=== PATIENT | female | born 1940 | race Caucasian/White ===

== ENCOUNTER → 2016-10-04 | Outpatient (CLI) | payer MEDICARE ==
[2016-10-04 20:26] LABS: Blood Urea Nitrogen 16 mg/dL (7-17); Non-African American GFR(MDRD) >60 (>60 ml/min/1.73 sqM)
--- NOTE | 2016-10-04 23:29 | MR ---
EXAMINATION TYPE: MR brain wo/w con DATE OF EXAM: 10/04/2016 COMPARISON: NONE HISTORY: Headaches TECHNIQUE: Multiplanar, multisequence images of the brain and brainstem is performed without and with IV contras t, utilizing 15 mL intravenous MultiHance . FINDINGS: There are a few scattered foci of increased signal in the white matter of both cerebral hem ispheres. The largest measures 5 mm. The total number is 6. There is no evidence of Cortical infarct . Brainstem appears fairly normal. Sella turcica is normal. Corpus callosum is intact. I see no patho logic enhancement. There is minimal subependymal increased signal around the lateral ventricles. IMPRESSION: There are scattered white matter signal changes most likely related to minimal chronic sm all vessel ischemia. No evidence of cortical infarct. No atrophy.
== END | disposition home or self-care (01) ==
LOC: RADMRIMAIN 19:14
PROVIDERS: ATTEND Otolaryngology
DX: R90.89 Other abnormal findings on diagnostic imaging of central nervous system (principal); R51 Headache
CPT/HCPCS: 82565; 84520; 70553; A9577

== ENCOUNTER 2016-11-07 20:44 | Emergency (ER) | payer MEDICARE ==
[2016-11-07 20:56] VITALS: TEMP 97.7
[2016-11-07 21:29] LABS: Basophils % (A) 1 %; CH 31.8; CHCM 34.6; Eosinophils # (A) 0.3 k/uL (0-0.7); Eosinophils % (A) 4 %; HCT 38.8 % (34.0-46.0); HDW 2.69; HGB 13.2 gm/dL (11.4-16.0); Luc # (Auto) 0.12; Luc % (Auto) 2; Lymphocytes # (A) 1.4 k/uL (1.0-4.8); Lymphocytes % (A) 21 %; MCH 31.4 pg (25.0-35.0); MCHC 34.1 g/dL (31.0-37.0); MCV 92.2 fL (80.0-100.0); Mean Platelet Volume 8.3; Monocytes # (A) 0.5 k/uL (0-1.0); Monocytes % (A) 7 %; Neutrophils # (A) 4.5 k/uL (1.3-7.7); Neutrophils % (A) 66 %; RDW 13.2 % (11.5-15.5); WBC 6.8 k/uL (3.8-10.6); WBC (Perox) 7.11
[2016-11-07 21:33] LABS: Appearance,Urine Clear (Clear); Bilirubin,Urine Negative (Negative); Glucose,Urine (UA) Negative (Negative); Ketones,Urine Negative (Negative); Leukocyte Esterase,Urine Negative (Negative); Mucus,Urine Rare /hpf; Nitrite,Urine Negative (Negative); Particle Count 3191; Protein,Urine Negative (Negative); RBC,Urine >182 /hpf (0-5); Specific Gravity,Urine 1.007 (1.001-1.035); Squamous Epithelial Cell,Urine <1 /hpf (0-4); UA Billing (MACRO vs. MICRO) MICRO; Urobilinogen,Urine <2.0 mg/dL (<2.0)
[2016-11-07 21:37] LABS: ALT 39 U/L (9-52); AST 31 U/L (14-36); Alkaline Phosphatase 105 U/L (38-126); Amylase 68 U/L (30-110); Anion Gap 8 mmol/L; Blood Urea Nitrogen 17 mg/dL (7-17); Calcium 9.7 mg/dL (8.4-10.2); Carbon Dioxide 27 mmol/L (22-30); Chloride 105 mmol/L (98-107); Glucose 94 mg/dL (74-99); Non-African American GFR(MDRD) >60 (>60 ml/min/1.73 sqM); Potassium 3.7 mmol/L (3.5-5.1); Sodium 140 mmol/L (137-145); Total Bilirubin 1.2 mg/dL (0.2-1.3); Total Protein 6.9 g/dL (6.3-8.2)
--- NOTE | 2016-11-07 21:46 | ED ---
Female Urogenital HPI - General Chief complaint: Abdominal Pain Stated complaint: Back Pain/ Abd Pain Time Seen by Provider: 11/07/16 21:03 Source: patient Mode of arrival: ambulatory Limitations: no limitations - History of Present Illness Initial comments: Patient is a 76-year-old woman who presents to be evaluated for hematuria. The patient states that her symptoms began approximately one month ago. She states that she thought she had a urinary tract infection. She was having some mild dysuria and she was having some hematuria. She saw her physician and completed a course of amoxicillin. She states that a few days after the course ended she had a recurrence of the hematuria and she then completed a 7 day course of Macrobid. This ended approximately 2-3 days ago and today in the evening she noticed a recurrence of the hematuria the patient also states that she has been having some abdominal bloating which is been going on for a day or 2. She has had a change in her bowel movements over the past 2 weeks, stating that her bowel movements have become very firm which is unusual for her. She does note that she changed to a vegetarian diet probably just before these bowel changes started. MD Complaint: other (Hematuria) Onset/Timin -: month(s) Severity: mild Quality: cramping, other Consistency: constant Improves with: none, other (Hematuria) Worsens with: none Patient : No - Related Data Home Medications Medication Instructions Recorded Confirmed Atorvastatin [Lipitor] 40 mg PO DAILY 11/07/16 11/07/16 Levothyroxine Sodium [Synthroid] 50 mcg PO DAILY 11/07/16 11/07/16 Previous Rx's Medication Instructions Recorded Hydrocodone/Acetaminophen [Hazard 1 each PO Q6HR PRN #20 tab 11/08/16 5-325] Ondansetron Odt [Zofran ODT] 4 mg PO Q8HR PRN #10 tab 11/08/16 Tamsulosin [Flomax] 0.4 mg PO DAILY #14 cap 11/08/16 Allergies Allergy/AdvReac Type Severity Reaction Status Date / Time aspirin AdvReac Abdominal Verified 11/07/16 20:56 Pain lactose AdvReac Intolerant Verified 11/07/16 21:07 Review of Systems ROS Statement: Those systems with pertinent positive or pertinent negative responses have been documented in the HPI. ROS Other: All systems not noted in ROS Statement are negative. Constitutional: Denies: fever, chills, weakness Respiratory: Denies: cough, dyspnea Cardiovascular: Denies: chest pain, palpitations, edema, syncope Gastrointestinal: Reports: as per HPI, abdominal pain (Bloating), constipation. Denies: nausea, vomiting, diarrhea, melena, hematochezia Genitourinary: Reports: hematuria. Denies: urgency, dysuria, frequency, discharge Musculoskeletal: Denies: back pain Skin: Denies: rash Neurological: Denies: headache, weakness, numbness Past Medical History Past Medical History: Hyperlipidemia, Thyroid Disorder History of Any Multi-Drug Resistant Organisms: None Reported Past Surgical History: No Surgical Hx Reported Past Psychological History: No Psychological Hx Reported Smoking Status: Former smoker Past Alcohol Use History: None Reported Past Drug Use History: None Reported General Exam Limitations: no limitations General appearance: alert, in no apparent distress Head exam: Present: atraumatic, normocephalic Eye exam: Present: normal appearance. Absent: scleral icterus, conjunctival injection ENT exam: Present: normal oropharynx Respiratory exam: Present: normal lung sounds bilaterally. Absent: respiratory distress, wheezes, rales, rhonchi, stridor Cardiovascular Exam: Present: regular rate, normal rhythm, normal heart sounds. Absent: systolic murmur, diastolic murmur, rubs, gallop GI/Abdominal exam: Present: soft, normal bowel sounds. Absent: distended, tenderness, guarding, rebound, rigid, mass, pulsatile mass, hernia Extremities exam: Present: normal inspection, normal capillary refill. Absent: pedal edema, calf tenderness Back exam: Present: normal inspection. Absent: CVA tenderness (R), CVA tenderness (L) Skin exam: Present: warm, dry, intact, normal color. Absent: rash, cyanosis, diaphoretic, erythema, petechiae, pallor, mottled Course Vital Signs 11/07/16 11/07/16 11/08/16 20:50 22:15 00:00 Temperature 97.7 F Pulse Rate 73 68 Respiratory 18 18 Rate Blood Pressure 215/98 183/77 202/93 O2 Sat by Pulse 98 96 Oximetry 11/08/16 01:50 Temperature Pulse Rate 88 Respiratory 16 Rate Blood Pressure 184/83 O2 Sat by Pulse Oximetry Medical Decision Making - Medical Decision Making Patient is a 76-year-old woman with hematuria, found to have kidney stone. Her symptoms have nearly completely resolved with medication. Discussed admission versus discharge she would like to go home and follow-up with the urologist as an outpatient. She seems stable for this. Discussed return parameters. Discussed appropriate further care and follow-up. - Lab Data Result diagrams: 11/07/16 21:00 11/07/16 21:00 Lab Results 11/07/16 11/07/16 11/07/16 Range/Units 21:00 21:00 21:00 WBC 6.8 (3.8-10.6) k/uL RBC 4.20 (3.80-5.40) m/uL Hgb 13.2 (11.4-16.0) gm/dL Hct 38.8 (34.0-46.0) % MCV 92.2 (80.0-100.0) fL MCH 31.4 (25.0-35.0) pg MCHC 34.1 (31.0-37.0) g/dL RDW 13.2 (11.5-15.5) % Plt Count 200 (150-450) k/uL Neutrophils % 66 % Lymphocytes % 21 % Monocytes % 7 % Eosinophils % 4 % Basophils % 1 % Neutrophils # 4.5 (1.3-7.7) k/uL Lymphocytes # 1.4 (1.0-4.8) k/uL Monocytes # 0.5 (0-1.0) k/uL Eosinophils # 0.3 (0-0.7) k/uL Basophils # 0.0 (0-0.2) k/uL Sodium 140 (137-145) mmol/L Potassium 3.7 (3.5-5.1) mmol/L Chloride 105 (98-107) mmol/L Carbon Dioxide 27 (22-30) mmol/L Anion Gap 8 mmol/L BUN 17 (7-17) mg/dL Creatinine 0.78 (0.52-1.04) mg/dL Est GFR (MDRD) Af Amer >60 (>60 ml/min/1.73 sqM) Est GFR (MDRD) Non-Af >60 (>60 ml/min/1.73 sqM) Glucose 94 (74-99) mg/dL Calcium 9.7 (8.4-10.2) mg/dL Total Bilirubin 1.2 (0.2-1.3) mg/dL AST 31 (14-36) U/L ALT 39 (9-52) U/L Alkaline Phosphatase 105 (38-126) U/L Total Protein 6.9 (6.3-8.2) g/dL Albumin 4.4 (3.5-5.0) g/dL Amylase 68 (30-110) U/L Lipase 197 (23-300) U/L Urine Color Yellow Urine Appearance Clear (Clear) Urine pH 7.0 (5.0-8.0) Ur Specific Holcomb 1.007 (1.001-1.035) Urine Protein Negative (Negative) Urine Glucose (UA) Negative (Negative) Urine Ketones Negative (Negative) Urine Blood Moderate H (Negative) Urine Nitrite Negative (Negative) Urine Bilirubin Negative (Negative) Urine Urobilinogen <2.0 (<2.0) mg/dL Ur Leukocyte Esterase Negative (Negative) Urine RBC >182 H (0-5) /hpf Ur Squamous Epith Cells <1 (0-4) /hpf Urine Mucus Rare H (None) /hpf Disposition Clinical Impression: Calculus of kidney Disposition: HOME SELF-CARE Condition: Fair Instructions: Kidney Stones (ED) Prescriptions: Hydrocodone/Acetaminophen [Hazard 5-325] 1 each PO Q6HR PRN #20 tab PRN Reason: Pain Ondansetron Odt [Zofran ODT] 4 mg PO Q8HR PRN #10 tab PRN Reason: Nausea Tamsulosin [Flomax] 0.4 mg PO DAILY #14 cap Referrals: Iman Simmons MD [Primary Care Provider] - 1-2 days Ashok Jenkins MD [STAFF PHYSICIAN] - 1-2 days
--- NOTE | 2016-11-08 00:38 | CT ---
EXAM: CT Abdomen and Pelvis Without Intravenous Contrast CLINICAL HISTORY: Reason: hematuria TECHNIQUE: Axial computed tomography images of the abdomen and pelvis without intravenous contrast. CTDI is 8.90 mGy and DLP is 397.80 mGy-cm. This CT exam was performed using one or more of the following dose reduction techniques: automated exposure control, adjustment of the mA and/or kV according to patient size, and/or use of iterative reconstruction technique. COMPARISON: 03/25/13 CT FINDINGS: Lower thorax: Of incidental note is a small fat-containing right Bochdalek hernia that is stable as is a small calcified node or granuloma posterior to the distalmost esophagus. ABDOMEN: Liver: Stable. Gallbladder and bile ducts: Stable. No calcified stones. No ductal dilation. Pancreas: Stable. Spleen: Stable. No splenomegaly. Adrenals: Stable. No mass. Kidneys and ureters: Bilateral renal calculi including 5 and 3 mm right lower pole, and punctate 1-2 mm left interpolar kidney. There is also a 4-5 mm right UPJ stone with minimal right pelviectasis and caliectasis. 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 Stomach and bowel: Diffuse colonic diverticulosis without diverticulitis or intestinal obstruction. Appendix: No findings to suggest acute appendicitis. PELVIS: Bladder: Unremarkable. No stones. Reproductive: Unremarkable as visualized. ABDOMEN and PELVIS: Intraperitoneal space: No free air. No significant fluid collection. Bones/joints: Multilevel degenerative changes without acute fracture. Soft tissues: Small fat-containing umbilical hernia Vasculature: Atherosclerotic calcifications without evidence of abdominal aortic aneurysm. Lymph nodes: No bulky adenopathy is seen. IMPRESSION: 1. Bilateral renal calculi, in addition to 4-5 mm right UPJ stone with minimal pelvicaliectasis. 2. Additional findings as above.
[2016-11-08] MEDS ORDERED: traMADol 50 MG STARTER PACK 3 TAB BTL PO STA (00:54)
[2016-11-08] MEDS ORDERED: cloNIDine HCL 0.2 MG TAB PO STA (00:54)
[2016-11-08] MEDS ORDERED: TAMSULOSIN 0.4 MG CAP.ER.24H PO STA (00:54)
[2016-11-08 01:55] VITALS: BP 184/83; PULSE 88; RESP 16
== END 2016-11-08 01:50 | disposition home or self-care (01) ==
LOC: EC 20:44
DX: N20.0 Calculus of kidney (principal); E78.5 Hyperlipidemia, unspecified; E07.9 Disorder of thyroid, unspecified; Z87.891 Personal history of nicotine dependence; Z88.6 Allergy status to analgesic agent; Z91.011 Allergy to milk products; Z79.899 Other long term (current) drug therapy
CPT/HCPCS: 36415; 74176; 80053; 81001; 82150; 83690; 85025; 99284

== ENCOUNTER → 2016-11-12 | Outpatient (CLI) | payer MEDICARE ==
--- NOTE | 2016-11-12 13:38 | XR ---
Abdomen HISTORY: Kidney stones, hematuria Frontal view of the abdomen correlated to prior CT scan 11/07/2016 There is some overlying artifact. Lung bases are not included on the exam. Bone mineralization somewh at reduced. No pneumoperitoneum or bowel obstruction is evident. Overlying bowel gas may obscure deta il. Multiple phleboliths are present within the pelvis. Question calcification at the level of the L2 transverse process on the right measuring 4 to 5 mm which may be proximal right ureteral calculus. D egenerative disc changes in the visualized spine. IMPRESSION: Bowel gas may obscure detail. Possible proximal ureteral calculus correlating to patient' s CT. Additional findings above.
== END | disposition home or self-care (01) ==
LOC: RADXRMAIN 10:38
PROVIDERS: ATTEND Physician Assistant
DX: N20.1 Calculus of ureter (principal)
CPT/HCPCS: 74000

== ENCOUNTER → 2016-12-04 | Outpatient (CLI) | payer MEDICARE ==
--- NOTE | 2016-12-04 11:09 | XR ---
EXAMINATION TYPE: XR abdomen 1V DATE OF EXAM: 12/04/2016 COMPARISON: 11/12/2016 HISTORY: Right-sided stone and pain TECHNIQUE: One view abdominal series FINDINGS: The osseous structures are intact. The bowel gas pattern is nonspecific. There is a calcification me asuring a diameter of 2 mm within the region of the right UPJ. Appears stable from the previous exam. Calcifications in the left are likely vascular. Osteitis pubis condensans noted. IMPRESSION: 1. Stable right sided calcification likely related to UPJ stone. Measures diameter of 2 mm.
== END | disposition home or self-care (01) ==
LOC: RADXRMAIN 10:35
PROVIDERS: ATTEND Urology
DX: N28.89 Other specified disorders of kidney and ureter (principal)
CPT/HCPCS: 74000

== ENCOUNTER 2017-05-01 23:48 | Emergency (ER) | payer MEDICARE ==
[2017-05-02] MEDS ORDERED: methylPREDNISolone SOD SUCCI 125 MG/2 ML VIAL IM ONE (01:13)
--- NOTE | 2017-05-02 01:27 | ED ---
Allergic Reaction HPI - General Chief complaint: Allergic Reaction Stated complaint: Poss Allergic Reaction Time Seen by Provider: 05/02/17 00:30 Source: patient, RN notes reviewed, old records reviewed Mode of arrival: wheelchair Limitations: no limitations - History of Present Illness Initial Comments: Patient is a 76 year old female with hives in groin and abdomen. She reports only new exposure is keflex which she is on for an infected left great toe. She reports she had ripped the nail off the toe early in the week. She states she noticed some minor lip swelling, was given benadryl by and brought here. She reports she is very hyper and anxious and her BP will be elevated. Patient reports her toe is healing well. She denies difficulty breathing. - Related Data Home Medications Medication Instructions Recorded Confirmed Atorvastatin [Lipitor] 40 mg PO DAILY 11/07/16 05/02/17 Levothyroxine Sodium [Synthroid] 50 mcg PO DAILY 11/07/16 05/02/17 Previous Rx's Medication Instructions Recorded diphenhydrAMINE [Benadryl] 25 mg PO BID PRN #12 capsule 05/02/17 methylPREDNISolone Dose Pack 4 mg PO DIRECTED #21 package 05/02/17 [Medrol Dose Pack] Allergies Allergy/AdvReac Type Severity Reaction Status Date / Time aspirin AdvReac Abdominal Verified 11/07/16 20:56 Pain lactose AdvReac Intolerant Verified 11/07/16 21:07 Review of Systems ROS Statement: Those systems with pertinent positive or pertinent negative responses have been documented in the HPI. ROS Other: All systems not noted in ROS Statement are negative. Past Medical History Past Medical History: Hyperlipidemia, Thyroid Disorder History of Any Multi-Drug Resistant Organisms: None Reported Past Surgical History: Tonsillectomy Past Psychological History: No Psychological Hx Reported Smoking Status: Former smoker Past Alcohol Use History: Rare Past Drug Use History: None Reported General Exam - General Exam Comments Initial Comments: This is a 76 year old female, no distress. Limitations: no limitations General appearance: alert, in no apparent distress Head exam: Present: atraumatic, normocephalic, normal inspection Eye exam: Present: normal appearance, PERRL, EOMI. Absent: scleral icterus, conjunctival injection, periorbital swelling ENT exam: Present: normal exam, mucous membranes moist Neck exam: Present: normal inspection. Absent: tenderness, meningismus, lymphadenopathy Respiratory exam: Present: normal lung sounds bilaterally. Absent: respiratory distress, wheezes, rales, rhonchi, stridor GI/Abdominal exam: Present: soft, normal bowel sounds, other (urticaria noted over abdomen, and backand inner thighs. ). Absent: distended, tenderness, guarding, rebound, rigid Extremities exam: Present: normal inspection, full ROM, normal capillary refill. Absent: tenderness, pedal edema, joint swelling, calf tenderness Back exam: Present: normal inspection Neurological exam: Present: alert, oriented X3, CN II-XII intact Psychiatric exam: Present: normal affect, normal mood Skin exam: Present: warm, dry, intact, rash, urticaria (urticaria in groin ). Absent: normal color Course Vital Signs 05/02/17 05/02/17 05/02/17 00:16 01:12 01:59 Temperature 98.1 F 97.5 F L Pulse Rate 72 78 62 Respiratory 20 20 18 Rate Blood Pressure 239/105 186/111 183/87 O2 Sat by Pulse 100 99 98 Oximetry Medical Decision Making - Medical Decision Making Patient is a 76 year old female with hives in groin and abdomen. She reports only new exposure is keflex which she is on for an infected left great toe. She reports she had ripped the nail off the toe early in the week. She states she noticed some minor lip swelling, was given benadryl by and brought here. Patient has no erythema or signs of a [place] over the left great toe at this time. I just message her rash is likely related to allergic reaction most likely to antibiotic. I will give the patient a shot of SOLUMEDROL and given a dose of Benadryl. Patient has no significant dyspnea. She does have some minor swelling of the right lower lip. At this time I will discharge the patient with a prescription for MEdrol dose pack. Patient will it advised it take Benadryl every 4 to 6 hours as well. Patient understands treatmetn plan and will comply , and return parameters discussed. Discussed for her to discontinue the anabiotic. I advise the patient to monitor the toe if there's any erythema or swelling to follow up with primary care provider or podiatry. Disposition Clinical Impression: Urticaria Disposition: HOME SELF-CARE Condition: Good Instructions: Urticaria (ED) Additional Instructions: Patient is to rest, increase her fluid intake. Return to emergency department if any alarming signs or symptoms occur. Prescriptions: diphenhydrAMINE [Benadryl] 25 mg PO BID PRN #12 capsule PRN Reason: Pain methylPREDNISolone Dose Pack [Medrol Dose Pack] 4 mg PO DIRECTED #21 package Referrals: Iman Simmons MD [Primary Care Provider] - 1-2 days Time of Disposition: 01:26
[2017-05-02 02:00] VITALS: BP 183/87; PULSE 62; RESP 18; TEMP 97.5
== END 2017-05-02 01:59 | disposition home or self-care (01) ==
LOC: EC 23:48
DX: L50.9 Urticaria, unspecified (principal); R22.0 Localized swelling, mass and lump, head; F41.9 Anxiety disorder, unspecified; E78.5 Hyperlipidemia, unspecified; E07.9 Disorder of thyroid, unspecified; Z87.891 Personal history of nicotine dependence; Z79.899 Other long term (current) drug therapy; Z88.6 Allergy status to analgesic agent; Z91.011 Allergy to milk products
CPT/HCPCS: 99283; 96372; J2930

== ENCOUNTER → 2017-08-22 | Outpatient (CLI) | payer MEDICARE ==
--- NOTE | 2017-08-23 10:47 | MM ---
Reason for exam: screening (asymptomatic). Last mammogram was performed 1 year and 7 months ago. History: Patient is postmenopausal. Took estrogen for 15 years. Took progesterone for 15 years. Physical Findings: A clinical breast exam by your physician is recommended on an annual basis and results should be correlated with mammographic findings. MG Screening Mammo w CAD Bilateral CC and MLO view(s) were taken. Prior study comparison: January 27, 2016, bilateral MG screening mammo w CAD. December 09, 2012, bilateral digital screening mammo w/CAD. There are scattered fibroglandular densities. No suspicious abnormality. No significant changes when compared with prior studies. ASSESSMENT: Negative, BI-RAD 1 RECOMMENDATION: Routine screening mammogram of both breasts in 1 year.
== END ==
LOC: RADMAMWWP 12:39
PROVIDERS: ATTEND Family Medicine
DX: Z12.31 Encounter for screening mammogram for malignant neoplasm of breast (principal)
CPT/HCPCS: 77067

== ENCOUNTER 2017-09-09 12:39 | Observation (INO) | payer MEDICARE ==
--- NOTE | 2017-09-09 13:14 | ED ---
General Adult HPI - General Chief complaint: Shortness of Breath Stated complaint: SOB x2 days, pain in arm and middle of chest Time Seen by Provider: 09/09/17 12:45 Source: patient, RN notes reviewed Mode of arrival: wheelchair Limitations: no limitations - History of Present Illness Initial comments: This is a 77-year-old female presents to the emergency department complaining shortness of breath. Patient states his been ongoing for a couple of days. Patient states exertion does seem to make it worse. Patient states she's had no cough or cold. Patient denies any palpitations. Patient states she does have a history of some anxiety. Patient states she's had chest pain lasting a minute or 2 and she's also had some pain in her left arm. Patient denies any diaphoretic episodes patient denies any nausea. Patient states she's had no lightheadedness or dizziness. Patient denies any headache patient denies numbness weakness. Patient denies any abdominal pain. Patient denies headache. - Related Data Home Medications Medication Instructions Recorded Confirmed Atorvastatin [Lipitor] 40 mg PO DAILY 11/07/16 09/09/17 Levothyroxine Sodium [Synthroid] 50 mcg PO DAILY 11/07/16 09/09/17 Calcium(Unknown Dose) 1 tab PO DAILY 09/09/17 09/09/17 Co Q-10(Unknown Dose) 1 tab PO DAILY 09/09/17 09/09/17 Fish Oil(Unknown Dose) 1 cap PO DAILY 09/09/17 09/09/17 Petty Root 1 tab PO DAILY 09/09/17 09/09/17 Magnesium(Unknown Dose) 1 tab PO DAILY 09/09/17 09/09/17 Multivitamins, Thera [Multivitamin 1 tab PO DAILY 09/09/17 09/09/17 (formulary)] Vitamin B Complex 1 cap PO DAILY 09/09/17 09/09/17 Vitamin D3(Unknown Dose) 1 cap PO DAILY 09/09/17 09/09/17 Allergies Allergy/AdvReac Type Severity Reaction Status Date / Time Sulfa (Sulfonamide Allergy Anaphylaxis Verified 09/09/17 13:16 Antibiotics) aspirin AdvReac Abdominal Verified 09/09/17 12:58 Pain lactose AdvReac Intolerant Verified 09/09/17 12:58 Review of Systems ROS Statement: Those systems with pertinent positive or pertinent negative responses have been documented in the HPI. ROS Other: All systems not noted in ROS Statement are negative. Past Medical History Past Medical History: Hyperlipidemia, Thyroid Disorder History of Any Multi-Drug Resistant Organisms: None Reported Past Surgical History: Adenoidectomy, Tonsillectomy Past Psychological History: No Psychological Hx Reported Smoking Status: Former smoker Past Alcohol Use History: Rare Past Drug Use History: None Reported General Exam - General Exam Comments Initial Comments: GENERAL: Patient is well-developed and well-nourished. Patient is nontoxic and well- hydrated and is in no acute distress. ENT: Neck is soft and supple. No significant lymphadenopathy is noted. Oropharynx is clear. Moist mucous membranes. Neck has full range of motion without eliciting any pain. EYES: The sclera were anicteric and conjunctiva were pink and moist. Extraocular movements were intact and pupils were equal round and reactive to light. Eyelids were unremarkable. PULMONARY: Unlabored respirations. Good breath sounds bilaterally. No audible rales rhonchi or wheezing was noted. CARDIOVASCULAR: There is a regular rate and rhythm without any murmurs gallops or rubs. ABDOMEN: Soft and nontender with normal bowel sounds. No palpable organomegaly was noted. There is no palpable pulsatile mass. SKIN: Skin is clear with no lesions or rashes and otherwise unremarkable. NEUROLOGIC: Patient is alert and oriented x3. Cranial nerves II through XII are grossly intact. Motor and sensory are also intact. Normal speech, volume and content. Symmetrical smile. MUSCULOSKELETAL: Normal extremities with adequate strength and full range of motion. No lower extremity swelling or edema. No calf tenderness. LYMPHATICS: No significant lymphadenopathy is noted PSYCHIATRIC: Patient appears mildly anxious Limitations: no limitations Course Vital Signs 09/09/17 12:45 Temperature 98.4 F Pulse Rate 70 Respiratory 18 Rate Blood Pressure 232/99 O2 Sat by Pulse 100 Oximetry Medical Decision Making - Medical Decision Making EKG shows normal sinus rhythm at 67 bpm LA interval is 128 QRS is 86 Q-T intervals 42 QTC is 424. Patient's EKG shows no ST segment elevation or depression or T wave abnormalities are noted. - Lab Data Result diagrams: 09/09/17 13:20 09/09/17 13:20 Lab Results 09/09/17 09/09/17 09/09/17 Range/Units 13:20 13:20 13:20 WBC 6.2 (3.8-10.6) k/uL RBC 4.72 (3.80-5.40) m/uL Hgb 14.1 (11.4-16.0) gm/dL Hct 41.2 (34.0-46.0) % MCV 87.3 (80.0-100.0) fL MCH 29.9 (25.0-35.0) pg MCHC 34.2 (31.0-37.0) g/dL RDW 12.8 (11.5-15.5) % Plt Count 199 (150-450) k/uL Neutrophils % 70 % Lymphocytes % 20 % Monocytes % 5 % Eosinophils % 3 % Basophils % 0 % Neutrophils # 4.3 (1.3-7.7) k/uL Lymphocytes # 1.2 (1.0-4.8) k/uL Monocytes # 0.3 (0-1.0) k/uL Eosinophils # 0.2 (0-0.7) k/uL Basophils # 0.0 (0-0.2) k/uL PT (9.0-12.0) sec INR (<1.2) APTT (22.0-30.0) sec D-Dimer (<0.60) mg/L FEU Sodium 142 (137-145) mmol/L Potassium 4.1 (3.5-5.1) mmol/L Chloride 105 (98-107) mmol/L Carbon Dioxide 24 (22-30) mmol/L Anion Gap 13 mmol/L BUN 16 (7-17) mg/dL Creatinine 0.63 (0.52-1.04) mg/dL Est GFR (CKD-EPI)AfAm >90 (>60 ml/min/1.73 sqM) Est GFR (CKD-EPI)NonAf 87 (>60 ml/min/1.73 sqM) Glucose 90 (74-99) mg/dL Calcium 10.2 (8.4-10.2) mg/dL Magnesium 2.2 (1.6-2.3) mg/dL Total Bilirubin 1.4 H (0.2-1.3) mg/dL AST 28 (14-36) U/L ALT 37 (9-52) U/L Alkaline Phosphatase 79 (38-126) U/L Total Creatine Kinase 51 (30-135) U/L CK-MB (CK-2) <0.2 (0.0-2.4) ng/mL CK-MB (CK-2) Rel Index Troponin I <0.012 (0.000-0.034) ng/mL NT-Pro-B Natriuret Pep pg/mL Total Protein 6.9 (6.3-8.2) g/dL Albumin 4.6 (3.5-5.0) g/dL 09/09/17 09/09/17 Range/Units 13:20 13:20 WBC (3.8-10.6) k/uL RBC (3.80-5.40) m/uL Hgb (11.4-16.0) gm/dL Hct (34.0-46.0) % MCV (80.0-100.0) fL MCH (25.0-35.0) pg MCHC (31.0-37.0) g/dL RDW (11.5-15.5) % Plt Count (150-450) k/uL Neutrophils % % Lymphocytes % % Monocytes % % Eosinophils % % Basophils % % Neutrophils # (1.3-7.7) k/uL Lymphocytes # (1.0-4.8) k/uL Monocytes # (0-1.0) k/uL Eosinophils # (0-0.7) k/uL Basophils # (0-0.2) k/uL PT 10.0 (9.0-12.0) sec INR 1.0 (<1.2) APTT 21.9 L (22.0-30.0) sec D-Dimer 0.44 (<0.60) mg/L FEU Sodium (137-145) mmol/L Potassium (3.5-5.1) mmol/L Chloride (98-107) mmol/L Carbon Dioxide (22-30) mmol/L Anion Gap mmol/L BUN (7-17) mg/dL Creatinine (0.52-1.04) mg/dL Est GFR (CKD-EPI)AfAm (>60 ml/min/1.73 sqM) Est GFR (CKD-EPI)NonAf (>60 ml/min/1.73 sqM) Glucose (74-99) mg/dL Calcium (8.4-10.2) mg/dL Magnesium (1.6-2.3) mg/dL Total Bilirubin (0.2-1.3) mg/dL AST (14-36) U/L ALT (9-52) U/L Alkaline Phosphatase (38-126) U/L Total Creatine Kinase (30-135) U/L CK-MB (CK-2) (0.0-2.4) ng/mL CK-MB (CK-2) Rel Index Troponin I (0.000-0.034) ng/mL NT-Pro-B Natriuret Pep 46 pg/mL Total Protein (6.3-8.2) g/dL Albumin (3.5-5.0) g/dL Disposition Clinical Impression: Chest pain, Dyspnea Disposition: ADMITTED IP TO THIS HOSP Referrals: Iman Simmons MD [Primary Care Provider] - 1-2 days Time of Disposition: 14:31
[2017-09-09 13:31] LABS: Basophils % (A) 0 %; Eosinophils # (A) 0.2 k/uL (0-0.7); Eosinophils % (A) 3 %; HCT 41.2 % (34.0-46.0); HGB 14.1 gm/dL (11.4-16.0); Lymphocytes # (A) 1.2 k/uL (1.0-4.8); Lymphocytes % (A) 20 %; MCH 29.9 pg (25.0-35.0); MCHC 34.2 g/dL (31.0-37.0); MCV 87.3 fL (80.0-100.0); Mean Platelet Volume 7.8; Monocytes # (A) 0.3 k/uL (0-1.0); Monocytes % (A) 5 %; Neutrophils # (A) 4.3 k/uL (1.3-7.7); Neutrophils % (A) 70 %; Platelet Count 199 k/uL (150-450); RBC 4.72 m/uL (3.80-5.40); RDW 12.8 % (11.5-15.5); WBC 6.2 k/uL (3.8-10.6)
--- NOTE | 2017-09-09 13:36 | XR ---
EXAMINATION TYPE: XR chest 2V DATE OF EXAM: 09/09/2017 COMPARISON: NONE HISTORY: Chest pain and shortness of breath TECHNIQUE: Frontal and lateral views of the chest are obtained. FINDINGS: There is no focal air space opacity, pleural effusion, or pneumothorax seen. The cardiac silhouette size is within normal limits. The osseous structures are intact. There are overlying car diac leads. Prominent lung volume could be indicative of underlying COPD. IMPRESSION: No acute cardiopulmonary process.
[2017-09-09 13:48] LABS: ALT 37 U/L (9-52); AST 28 U/L (14-36); Albumin 4.6 g/dL (3.5-5.0); Alkaline Phosphatase 79 U/L (38-126); Anion Gap 13 mmol/L; Blood Urea Nitrogen 16 mg/dL (7-17); Calcium 10.2 mg/dL (8.4-10.2); Carbon Dioxide 24 mmol/L (22-30); Chloride 105 mmol/L (98-107); Glucose 90 mg/dL (74-99); Magnesium 2.2 mg/dL (1.6-2.3); Potassium 4.1 mmol/L (3.5-5.1); Sodium 142 mmol/L (137-145); Total Bilirubin 1.4 mg/dL (0.2-1.3); Total Protein 6.9 g/dL (6.3-8.2)
[2017-09-09 13:53] LABS: D-Dimer 0.44 mg/L FEU (<0.60); Partial Thromboplastin Time 21.9 sec (22.0-30.0)
[2017-09-09 13:55] LABS: Creatine Kinase 51 U/L (30-135)
[2017-09-09 14:07] LABS: Creatine Kinase MB <0.2 ng/mL (0.0-2.4); Troponin I <0.012 ng/mL (0.000-0.034)
[2017-09-09] MEDS ORDERED: NITROGLYCERIN SL TABS 0.4 MG TAB SUBLINGUAL PRN (14:33)
[2017-09-09] MEDS: NITROGLYCERIN OINT 1 INCH/GM PACKET TOPICAL SCH ×2 (19:34→23:26)
[2017-09-09 19:59] LABS: Creatine Kinase 46 U/L (30-135)
[2017-09-09 20:12] LABS: Creatine Kinase MB 0.3 ng/mL (0.0-2.4); Troponin I <0.012 ng/mL (0.000-0.034)
[2017-09-09] MEDS ORDERED: ALPRAZolam 0.25 MG TAB PO PRN (22:22)
[2017-09-10 02:12] LABS: Creatine Kinase 57 U/L (30-135)
[2017-09-10 02:26] LABS: Creatine Kinase MB 0.4 ng/mL (0.0-2.4); Troponin I <0.012 ng/mL (0.000-0.034)
[2017-09-10 02:43] LABS: Cholesterol 236 mg/dL (<200); HDL Cholesterol 71 mg/dL (40-60); LDL Cholesterol,Calculated 132 mg/dL (0-99); Triglycerides 165 mg/dL (<150)
[2017-09-10 03:44] VITALS: RESP 16
[2017-09-10] MEDS: NITROGLYCERIN OINT 1 INCH/GM PACKET TOPICAL SCH (03:57)
[2017-09-10] MEDS ORDERED: ASPIRIN 325 MG TAB PO SCH (09:00)
--- NOTE | 2017-09-10 10:15 | P.CRDCN ---
History of Present Illness Consult date: 09/10/17 Requesting physician: Moshe Castro Consult reason: chest pain, shortness of breath Chief complaint: Exertional shortness of breath and chest pain History of present illness: This is a pleasant 77-year-old female with history of hypothyroidism and hyperlipidemia, no hypertension, no diabetes, mild anxiety, quit smoking several years ago, who is a very active 77-year-old female. She states that she has been helping her daughter who has been a garrick her house, she apparently had lifted at least a 500 shingles off the ground, seemed to tolerate it well. She does state that since that time, she has noticed herself to be exertionally short of breath doing activities which normally would not make her short of breath at all. She occasionally gets a mild discomfort in her left arm with this as well. She denies any overt chest discomfort, just states that when she presses on the chest wall. Chest x-ray was performed which did not reveal any acute cardiopulmonary process. EKG shows normal sinus rhythm with nonspecific ST-T wave changes occasional PVCs noted on the monitor. Subsequent EKG performed this morning shows normal sinus rhythm with left axis deviation. Blood pressure on arrival here to 32/99, heart rate 70, 100% on room air. Blood pressure this morning 174/76 with a heart rate in the 60s, 97% on room air. White blood cell count is normal, hemoglobin 14.1, platelet count 199. D-dimer 0.44, sodium 142, potassium 4.1, BUN 16, creatinine 0.3. Troponins have been negative 3. Cholesterol 236, LDL 132, triglycerides 165 and HDL 71. The patient's home medications include Lipitor 40 mg daily, Synthroid 50 g daily and vitamins. At the time of my examination this morning , patient is sitting up in bed, denies any shortness of breath, no chest discomfort. 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 History of Any Multi-Drug Resistant Organisms: None Reported Past Surgical History: Adenoidectomy, Tonsillectomy Past Anesthesia/Blood Transfusion Reactions: No Reported Reaction Additional Past Anesthesia/Blood Transfusion Reaction / Comment(s): never recieved blood in past Smoking Status: Former smoker - Past Family History Father Family Medical History: Cancer Additional Family Medical History / Comment(s): colon cancer Mother Family Medical History: CVA/TIA Additional Family Medical History / Comment(s): had a stroke at age 47 4.5 years later Medications and Allergies Home Medications Medication Instructions Recorded Confirmed Type Atorvastatin [Lipitor] 40 mg PO DAILY 11/07/16 09/09/17 History Levothyroxine Sodium [Synthroid] 50 mcg PO DAILY 11/07/16 09/09/17 History Calcium(Unknown Dose) 1 tab PO DAILY 09/09/17 09/09/17 History Co Q-10(Unknown Dose) 1 tab PO DAILY 09/09/17 09/09/17 History Fish Oil(Unknown Dose) 1 cap PO DAILY 09/09/17 09/09/17 History Petty Root 1 tab PO DAILY 09/09/17 09/09/17 History Magnesium(Unknown Dose) 1 tab PO DAILY 09/09/17 09/09/17 History Multivitamins, Thera [Multivitamin 1 tab PO DAILY 09/09/17 09/09/17 History (formulary)] Vitamin B Complex 1 cap PO DAILY 09/09/17 09/09/17 History Vitamin D3(Unknown Dose) 1 cap PO DAILY 09/09/17 09/09/17 History Allergies Allergy/AdvReac Type Severity Reaction Status Date / Time Sulfa (Sulfonamide Allergy Anaphylaxis Verified 09/09/17 13:16 Antibiotics) aspirin AdvReac Abdominal Verified 09/09/17 12:58 Pain lactose AdvReac Intolerant Verified 09/09/17 12:58 Physical Exam Vitals: Vital Signs Temp Pulse Pulse Resp BP BP Pulse Ox 09/10/17 08:10 97.5 F L 67 16 175/76 97 09/10/17 03:45 16 09/10/17 03:44 98.2 F 79 16 134/68 95 09/09/17 23:24 85 18 09/09/17 23:20 97.6 F 85 18 159/72 95 09/09/17 20:00 77 19 09/09/17 19:41 97.7 F 77 19 182/82 96 09/09/17 17:07 97.7 F 74 16 137/68 98 09/09/17 16:30 97.1 F L 79 16 174/77 98 09/09/17 14:45 98.1 F 68 18 152/74 98 09/09/17 12:45 98.4 F 70 18 232/99 100 Intake and Output 09/09/17 09/10/17 09/10/17 22:59 06:59 14:59 Intake Total 180 Output Total 400 Balance -220 Intake: Oral 180 Output: Urine 400 Other: Voiding Method Toilet Toilet Toilet # Voids 1 Weight 69.2 kg PHYSICAL EXAMINATION: GENERAL: 77-year-old female who appears much younger than her stated age, in no distress at the time of my examination. HEENT: Head is atraumatic, normocephalic. Pupils equal, round. Sclera anicteric. Conjunctiva are clear. Mucous membranes of the mouth are moist. Neck is supple. There is no elevated jugular venous pressure.] bruit is heard. HEART EXAMINATION: Heart S1, S2 normal. No murmur or gallop heard. CHEST EXAMINATION: Lungs are clear to auscultation and precussion. No chest wall tenderness is noted on palpation or with deep breathing. ABDOMEN: Soft, nontender. Bowel sounds are heard. No organomegaly noted. EXTREMITIES: 2+ peripheral pulses with no evidence of peripheral edema and no calf tenderness noted. NEUROLOGIC patient is awake, alert and oriented -3. . Results 09/09/17 13:20 09/09/17 13:20 Cardiac Enzymes 09/09/17 09/09/17 09/09/17 Range/Units 13:20 13:20 19:10 AST 28 (14-36) U/L CK-MB (CK-2) <0.2 0.3 (0.0-2.4) ng/mL Troponin I <0.012 <0.012 (0.000-0.034) ng/mL 09/10/17 Range/Units 00:56 AST (14-36) U/L CK-MB (CK-2) 0.4 (0.0-2.4) ng/mL Troponin I <0.012 (0.000-0.034) ng/mL Coagulation 09/09/17 Range/Units 13:20 PT 10.0 (9.0-12.0) sec APTT 21.9 L (22.0-30.0) sec Lipids 09/09/17 Range/Units 13:20 Triglycerides 165 H (<150) mg/dL Cholesterol 236 H (<200) mg/dL HDL Cholesterol 71 H (40-60) mg/dL CBC 09/09/17 Range/Units 13:20 WBC 6.2 (3.8-10.6) k/uL RBC 4.72 (3.80-5.40) m/uL Hgb 14.1 (11.4-16.0) gm/dL Hct 41.2 (34.0-46.0) % Plt Count 199 (150-450) k/uL Comprehensive Metabolic Panel 09/09/17 Range/Units 13:20 Sodium 142 (137-145) mmol/L Potassium 4.1 (3.5-5.1) mmol/L Chloride 105 (98-107) mmol/L Carbon Dioxide 24 (22-30) mmol/L BUN 16 (7-17) mg/dL Creatinine 0.63 (0.52-1.04) mg/dL Glucose 90 (74-99) mg/dL Calcium 10.2 (8.4-10.2) mg/dL AST 28 (14-36) U/L ALT 37 (9-52) U/L Alkaline Phosphatase 79 (38-126) U/L Total Protein 6.9 (6.3-8.2) g/dL Albumin 4.6 (3.5-5.0) g/dL Current Medications Generic Name Dose Route Start Last Admin Trade Name Freq PRN Reason Stop Dose Admin Alprazolam 0.25 mg 09/09/17 22:22 09/09/17 22:40 Xanax PO 0.25 mg QID PRN Administration Anxiety Aspirin 325 mg 09/10/17 09:00 09/10/17 08:08 Aspirin PO 325 mg DAILY [facility] Administration Nitroglycerin 1 inch 09/09/17 18:00 09/10/17 03:57 Nitro-Bid Oint TOPICAL Not Given Q6HR [facility] Nitroglycerin 0.4 mg 09/09/17 14:33 Nitrostat SUBLINGUAL Q5M PRN Chest Pain Intake and Output 09/09/17 09/10/17 09/10/17 22:59 06:59 14:59 Intake Total 180 Output Total 400 Balance -220 Intake: Oral 180 Output: Urine 400 Other: Voiding Method Toilet Toilet Toilet # Voids 1 Weight 69.2 kg 09/09/17 13:20 09/09/17 13:20 EKG Interpretations (text) EKG shows normal sinus rhythm with left axis deviation, nonspecific ST-T wave changes. Assessment and Plan Plan: Assessment and plan #1 symptoms of exertional shortness of breath associated atypical chest pain. Troponins negative 3. EKG shows a normal sinus rhythm with left axis deviation and nonspecific ST-T wave changes. Chest x-ray did not reveal any acute cardiopulmonary process. #2 accelerated hypertension in a patient with no prior history of hypertension #3 hyperlipidemia, on Lipitor 40 as an outpatient #4 prior history of smoking # 5 anxiety plan We will obtain an echocardiogram with Doppler study. She was seen and examined by Dr. Ariel Davis and recommendation was given to be discharged home and follow- up with him in the office. Outpatient stress test will be performed. DNP note has been reviewed, I agree with a documented findings and plan of care. Patient was seen and examined.
[2017-09-10] MEDS ORDERED: amLODIPine 5 MG TAB PO SCH ×2 (10:30→21:00)
[2017-09-10] MEDS ORDERED: LOSARTAN 25 MG TAB PO SCH (10:30)
[2017-09-10] MEDS ORDERED: METOPROLOL TARTRATE 12.5 MG TAB PO SCH (11:15)
--- NOTE | 2017-09-10 12:10 | ECHOF ---
Referral Reason:Dyspnea, chest pain MEASUREMENTS -------- HEIGHT: 154.9 cm WEIGHT: 68.0 kg BP: IVSd: 1.2 cm (0.6 - 1.1) LVIDd: 3.0 cm (3.9 - 5.3) LVPWd: 1.3 cm (0.6 - 1.1) IVSs: 1.3 cm LVIDs: 1.2 cm LVPWs: 1.2 cm LAESV Index (A-L): 21.30 ml/m Ao Diam: 2.6 cm (2.0 - 3.7) AV Cusp: 1.5 cm (1.5 - 2.6) LA Diam: 2.8 cm (2.7 - 3.8) MV EXCURSION: 11.106 mm (> 18.000) MV EF SLOPE: 57 mm/s (70 - 150) EPSS: 0.3 cm MV E Hector: 0.69 m/s MV DecT: 267 ms MV A Hector: 0.96 m/s MV E/A Ratio: 0.72 RAP: 5.00 mmHg RVSP: 14.19 mmHg FINDINGS -------- Sinus rhythm. This was a technically adequate study. The left ventricular size is normal. There is mild concentric left ventricular hypertrophy. Overa ll left ventricular systolic function is normal with, an EF between 55 - 60 %. The right ventricle is normal in size and function. The left atrium is normal in size. The right atrium is normal in size. The aortic valve is trileaflet, and appears structurally normal. No aortic stenosis or regurgitation. The mitral valve leaflets are mildly thickened. Moderate mitral regurgitation is present. Mild tricuspid regurgitation present. Right ventricular systolic pressure is normal at < 35 mmHg. The right ventricular systolic pressure, as measured by Doppler, is 14.19mmHg. There is no pulmonic regurgitation present. The aortic root size is normal. Normal inferior vena cava with normal inspiratory collapse consistent with estimated right atrial pre ssure of 5 mmHg. There is no pericardial effusion. CONCLUSIONS -------- 1. Sinus rhythm. 2. This was a technically adequate study. 3. The left ventricular size is normal. 4. There is mild concentric left ventricular hypertrophy. 5. Overall left ventricular systolic function is normal with, an EF between 55 - 60 %. 6. The left atrium is normal in size. 7. The aortic valve is trileaflet, and appears structurally normal. No aortic stenosis or regurgitati on. 8. The mitral valve leaflets are mildly thickened. 9. Moderate mitral regurgitation is present. 10. Mild tricuspid regurgitation present. 11. Right ventricular systolic pressure is normal at < 35 mmHg. 12. There is no pulmonic regurgitation present. 13. The aortic root size is normal. 14. Normal inferior vena cava with normal inspiratory collapse consistent with estimated right atrial pressure of 5 mmHg. 15. There is no pericardial effusion. [employer]BASSADOR: Aleena Russo RDCS
[2017-09-10 13:26] VITALS: BP 172/86; PULSE 76; TEMP 97.6
--- NOTE | 2017-09-10 13:38 | P.HPIM ---
History of Present Illness H&P Date: 09/10/17 Chief Complaint: Shortness of breath This is a 77-year-old female with past medical history noted below who presented to the hospital with shortness of breath and chest discomfort. Patient is very active and she said that she was helping her daughter garrick her house when she noted that she is more short of breath. She also has some discomfort in the left chest and left arm. She denies chest pain per se. She was concerned and decided to come to the emergency room for further evaluation. In the emergency room, 12-lead EKG showed normal sinus rhythm with no acute ischemic changes. She had some occasional PVCs. Initial troponin was negative. Patient was noted to be hypertensive with a systolic blood pressure in the 170s to 180s. Patient was placed in observation and was seen and evaluated by cardiology. Echocardiogram of the heart showed normal ejection fraction with no significant valvular abnormalities. No significant wall motion abnormalities reported. Patient herself remained chest pain-free. She said that she takes all of her medications at home as directed. She admits of having white coat syndrome and said that she regularly check her blood pressure at home and it's normal. Often times her primary care physician have her to sit down for 15 minutes and recheck her blood pressure to obtain a normal value. Patient was seen by cardiology and her chest pain was thought to be atypical in nature. She was cleared for discharge home. She will follow-up in the office in one week for possible cardiac stress test. Review of Systems Review of system: 14 points review of systems were obtained and were negative except to what were mentioned in the HPI. 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 History of Any Multi-Drug Resistant Organisms: None Reported Past Surgical History: Adenoidectomy, Tonsillectomy Past Anesthesia/Blood Transfusion Reactions: No Reported Reaction Additional Past Anesthesia/Blood Transfusion Reaction / Comment(s): never recieved blood in past Smoking Status: Former smoker - Past Family History Father Family Medical History: Cancer Additional Family Medical History / Comment(s): colon cancer Mother Family Medical History: CVA/TIA Additional Family Medical History / Comment(s): had a stroke at age 47 4.5 years later Medications and Allergies Home Medications Medication Instructions Recorded Confirmed Type Atorvastatin [Lipitor] 40 mg PO DAILY 11/07/16 09/09/17 History Levothyroxine Sodium [Synthroid] 50 mcg PO DAILY 11/07/16 09/09/17 History Calcium(Unknown Dose) 1 tab PO DAILY 09/09/17 09/09/17 History Co Q-10(Unknown Dose) 1 tab PO DAILY 09/09/17 09/09/17 History Fish Oil(Unknown Dose) 1 cap PO DAILY 09/09/17 09/09/17 History Petty Root 1 tab PO DAILY 09/09/17 09/09/17 History Magnesium(Unknown Dose) 1 tab PO DAILY 09/09/17 09/09/17 History Multivitamins, Thera [Multivitamin 1 tab PO DAILY 09/09/17 09/09/17 History (formulary)] Vitamin B Complex 1 cap PO DAILY 09/09/17 09/09/17 History Vitamin D3(Unknown Dose) 1 cap PO DAILY 09/09/17 09/09/17 History Allergies Allergy/AdvReac Type Severity Reaction Status Date / Time Sulfa (Sulfonamide Allergy Anaphylaxis Verified 09/09/17 13:16 Antibiotics) aspirin AdvReac Abdominal Verified 09/09/17 12:58 Pain lactose AdvReac Intolerant Verified 09/09/17 12:58 Physical Exam Vitals: Vital Signs Temp Pulse Pulse Resp BP BP Pulse Ox 09/10/17 12:00 97.6 F 76 16 172/86 96 09/10/17 08:10 97.5 F L 67 16 175/76 97 09/10/17 03:45 16 09/10/17 03:44 98.2 F 79 16 134/68 95 09/09/17 23:24 85 18 09/09/17 23:20 97.6 F 85 18 159/72 95 09/09/17 20:00 77 19 09/09/17 19:41 97.7 F 77 19 182/82 96 09/09/17 17:07 97.7 F 74 16 137/68 98 09/09/17 16:30 97.1 F L 79 16 174/77 98 09/09/17 14:45 98.1 F 68 18 152/74 98 Intake and Output 09/09/17 09/10/1718 22:59 06:59 14:59 Intake Total 180 240 Output Total 400 Balance -220 240 Intake: Oral 180 240 Output: Urine 400 Other: Voiding Method Toilet Toilet Toilet # Voids 1 3 Weight 69.2 kg General: The patient is awake and alert, in no distress Eye: there is normal conjunctiva bilaterally. Neck: The neck is supple, there is no JVD. Cardiovascular: Normal S1-S2, no S3-S4, no murmurs. Respiratory: Lungs clear to auscultation bilaterally Gastrointestinal: Abdomen is soft, nontender Musculoskeletal: There is no pedal edema. Neurological:. Speech is normal. Skin: Skin is warm and dry Results CBC & Chem 7: 09/09/17 13:20 09/09/17 13:20 Labs: Abnormal Lab Results - Last 24 Hours (Table) 09/09/17 09/09/17 09/09/17 Range/Units 13:20 13:20 13:20 APTT 21.9 L (22.0-30.0) sec Total Bilirubin 1.4 H (0.2-1.3) mg/dL Triglycerides 165 H (<150) mg/dL Cholesterol 236 H (<200) mg/dL LDL Cholesterol, Calc 132 H (0-99) mg/dL HDL Cholesterol 71 H (40-60) mg/dL Thrombosis Risk Factor Assmnt - Choose All That Apply Any of the Below Risk Factors Present?: Yes Each Factor Represents 1 point: Obesity (BMI >25) Other Risk Factors: Yes Each Risk Factor Represents 3 Points: Age 75 years or older Other congenital or acquired thrombophilia - If yes, enter type in comment: No Thrombosis Risk Factor Assessment Total Risk Factor Score: 4 Thrombosis Risk Factor Assessment Level: Moderate Risk Assessment and Plan Assessment: This is a 77-year-old female with past medical history noted below who presented to the hospital with shortness of breath and chest discomfort. Patient is very active and she said that she was helping her daughter garrick her house when she noted that she is more short of breath. She also has some discomfort in the left chest and left arm. She denies chest pain per se. She was concerned and decided to come to the emergency room for further evaluation. In the emergency room, 12-lead EKG showed normal sinus rhythm with no acute ischemic changes. She had some occasional PVCs. Initial troponin was negative. Patient was noted to be hypertensive with a systolic blood pressure in the 170s to 180s. Patient was placed in observation and was seen and evaluated by cardiology. Echocardiogram of the heart showed normal ejection fraction with no significant valvular abnormalities. No significant wall motion abnormalities reported. Patient herself remained chest pain-free. She said that she takes all of her medications at home as directed. She admits of having white coat syndrome and said that she regularly check her blood pressure at home and it's normal. Often times her primary care physician have her to sit down for 15 minutes and recheck her blood pressure to obtain a normal value. Patient was seen by cardiology and her chest pain was thought to be atypical in nature. She was cleared for discharge home. She will follow-up in the office in one week for possible cardiac stress test. 1. Atypical chest discomfort 2. Mixed hyperlipidemia on Lipitor 40 mg daily 3. Hypothyroidism on levothyroxin 4. Generalized anxiety disorder
--- NOTE | 2017-09-10 13:41 | P.DS ---
Providers Date of admission: 09/09/17 14:33 Expected date of discharge: 09/10/17 Attending physician: Moshe Castro Consults: 09/09/17 14:33 Consult Physician Urgent Consulting Provider: [facility] Consult Reason/Comments: Chest pain, dyspnea Do you want consulting provider notified?: Yes Primary care physician: Iman Hansen [facility] Hospital Course: This is a 77-year-old female with past medical history noted below who presented to the hospital with shortness of breath and chest discomfort. Patient is very active and she said that she was helping her daughter garrick her house when she noted that she is more short of breath. She also has some discomfort in the left chest and left arm. She denies chest pain per se. She was concerned and decided to come to the emergency room for further evaluation. In the emergency room, 12-lead EKG showed normal sinus rhythm with no acute ischemic changes. She had some occasional PVCs. Initial troponin was negative. Patient was noted to be hypertensive with a systolic blood pressure in the 170s to 180s. Patient was placed in observation and was seen and evaluated by cardiology. Echocardiogram of the heart showed normal ejection fraction with no significant valvular abnormalities. No significant wall motion abnormalities reported. Patient herself remained chest pain-free. She said that she takes all of her medications at home as directed. She admits of having white coat syndrome and said that she regularly check her blood pressure at home and it's normal. Often times her primary care physician have her to sit down for 15 minutes and recheck her blood pressure to obtain a normal value. Patient was seen by cardiology and her chest pain was thought to be atypical in nature. She was cleared for discharge home. She will follow-up in the office in one week for possible cardiac stress test. She will be started on Toprol-XL 25 mg daily. She will continue to check her blood pressure at home and make a log to take it to her primary care physician as well as to her mill manager. Plan - Discharge Summary Discharge Rx Participant: No New Discharge Prescriptions: New amLODIPine BESYLATE [Norvasc] 2.5 mg PO DAILY #30 tab Metoprolol Succinate (ER) [Toprol Xl] 25 mg PO DAILY #30 tab Continue Atorvastatin [Lipitor] 40 mg PO DAILY Levothyroxine Sodium [Synthroid] 50 mcg PO DAILY Vitamin B Complex 1 cap PO DAILY Multivitamins, Thera [Multivitamin (formulary)] 1 tab PO DAILY Magnesium(Unknown Dose) 1 tab PO DAILY Calcium(Unknown Dose) 1 tab PO DAILY Vitamin D3(Unknown Dose) 1 cap PO DAILY Fish Oil(Unknown Dose) 1 cap PO DAILY Petty Root 1 tab PO DAILY Co Q-10(Unknown Dose) 1 tab PO DAILY Discharge Medication List Atorvastatin [Lipitor] 40 mg PO DAILY 11/07/16 [History] Levothyroxine Sodium [Synthroid] 50 mcg PO DAILY 11/07/16 [History] Calcium(Unknown Dose) 1 tab PO DAILY 09/09/17 [History] Co Q-10(Unknown Dose) 1 tab PO DAILY 09/09/17 [History] Fish Oil(Unknown Dose) 1 cap PO DAILY 09/09/17 [History] Petty Root 1 tab PO DAILY 09/09/17 [History] Magnesium(Unknown Dose) 1 tab PO DAILY 09/09/17 [History] Multivitamins, Thera [Multivitamin (formulary)] 1 tab PO DAILY 09/09/17 [History ] Vitamin B Complex 1 cap PO DAILY 09/09/17 [History] Vitamin D3(Unknown Dose) 1 cap PO DAILY 09/09/17 [History] Metoprolol Succinate (ER) [Toprol Xl] 25 mg PO DAILY #30 tab 09/10/17 [Rx] amLODIPine BESYLATE [Norvasc] 2.5 mg PO DAILY #30 tab 09/10/17 [Rx] Follow up Appointment(s)/Referral(s): Iman Simmons MD [Primary Care Provider] - 3 Days Wallace Davis MD [STAFF PHYSICIAN] - 1 Week Discharge Disposition: HOME SELF-CARE
[2017-09-11] MEDS ORDERED: ASPIRIN 81 MG PO SCH (09:00)
== END 2017-09-10 14:55 | disposition home or self-care (01) ==
LOC: EC 12:39 → 6SEL 14:33
PROVIDERS: ADMIT Internal Medicine; ATTEND Internal Medicine
DX: R07.89 Other chest pain (principal); R06.02 Shortness of breath; R03.0 Elevated blood-pressure reading, without diagnosis of hypertension; I49.3 Ventricular premature depolarization; E78.2 Mixed hyperlipidemia; E03.9 Hypothyroidism, unspecified; F41.1 Generalized anxiety disorder; E66.9 Obesity, unspecified; Z68.29 Body mass index [BMI] 29.0-29.9, adult; Z79.890 Hormone replacement therapy; Z79.899 Other long term (current) drug therapy; Z88.6 Allergy status to analgesic agent; Z88.2 Allergy status to sulfonamides; Z87.01 Personal history of pneumonia (recurrent); Z87.891 Personal history of nicotine dependence; Z80.0 Family history of malignant neoplasm of digestive organs; Z82.3 Family history of stroke
CPT/HCPCS: 99285 ×2; 36415; 93005; 93306; 85379; 83880; 80061; 80053; 82550 ×2; 82553 ×2; 83735; 84484 ×2; 85025; 85610; 85730; 71046; G0378 ×2

== ENCOUNTER → 2018-08-29 | Outpatient (CLI) | payer MEDICARE ==
--- NOTE | 2018-08-29 15:15 | BD ---
EXAMINATION TYPE: Axial Bone Density DATE OF EXAM: 08/29/2018 COMPARISON: 05/30/2010 CLINICAL HISTORY: Height: 60 IN Weight: 157 LBS FRAX RISK QUESTIONS: Secondary Osteoporosis: 3. Menopause before 45: AGE 43 RISK FACTORS HISTORY OF: Active: YES Diet low in dairy products/other sources of calcium: YES Postmenopausal woman: AGE 43 Take estrogen and/or progesterone medications: NOT NOW How long: AGE 25-50 MEDICATIONS: Thyroid Medications: YES Which medication: Synthroid How Lon YEARS Additional Medications: VIT D, COQ10. FISH OIL,MULTI VIT,BLOOD PRESSURE, CHOLESTEROL MEDS, EXAM MEASUREMENTS: Bone mineral densitometry was performed using the [employer] System. Bone mineral density as measured about the Lumbar spine is: ----- L1-L4(G/cm2): 1.129 T Score Values are as follows: ----- L2: -0.7 ----- L3: 0.1 ----- L4: -0.5 ----- L1-L4: -0.4 Bone mineral density has: Decreased -4.5% since study of: 05/30/2010 Bone mineral density about the R hip (g/cm2): 0.780 Bone mineral density about the L hip (g/cm2): 0.796 T Score values are as follows: -----R Neck: -1.9 -----L Neck: -1.7 -----R Total: -1.1 -----L Total: -1.1 Bone mineral density has: Decreased -8.5% since study of: 05/30/2010 IMPRESSION: Osteopenia (T Score between -2.5 and -1). There is slightly increased risk of fracture and the patient may be considered for treatment. Re-Screen 2-5 years. NOTE: T-SCORE=SD OF THE YOUNG ADULT MEAN.
--- NOTE | 2018-09-02 12:14 | MM ---
Reason for exam: screening (asymptomatic). Last mammogram was performed 1 year ago. History: Patient is postmenopausal. Took estrogen for 15 years. Took progesterone for 15 years. Physical Findings: A clinical breast exam by your physician is recommended on an annual basis and results should be correlated with mammographic findings. MG Screening Mammo w CAD Bilateral CC and MLO view(s) were taken. Prior study comparison: August 22, 2017, bilateral MG screening mammo w CAD. January 27, 2016, bilateral MG screening mammo w CAD. There are scattered fibroglandular densities. No suspicious abnormality. No significant changes when compared with prior studies. ASSESSMENT: Negative, BI-RAD 1 RECOMMENDATION: Routine screening mammogram of both breasts in 1 year.
== END ==
LOC: RADMAMWWP 12:07
PROVIDERS: ATTEND Family Medicine
DX: Z12.31 Encounter for screening mammogram for malignant neoplasm of breast (principal); M85.80 Other specified disorders of bone density and structure, unspecified site
CPT/HCPCS: 77067; 77080